=== PATIENT | male | born 1965 | race Caucasian/White ===

== ENCOUNTER 2019-03-05 19:47 | Emergency (ER) | payer SELFPAY ==
[2019-03-05] MEDS ORDERED: Ondansetron 4 MG/2 ML SDV IVPUSH ONE (19:58)
[2019-03-05] MEDS ORDERED: Ketorolac 30 MG/ML SDV IVPUSH ONE (19:58)
[2019-03-05] MEDS ORDERED: Sodium Chloride 0.9% 1,000 ML IV ONE (19:58)
--- NOTE | 2019-03-05 20:01 | EDM.PDOC ---
ED HPI GENERAL MEDICAL PROBLEM - General Chief Complaint: Abdominal Pain Stated Complaint: ADB PAIN Time Seen by Provider: 03/05/19 19:58 Source of Information: Reports: Patient History Limitations: Reports: No Limitations - History of Present Illness INITIAL COMMENTS - FREE TEXT/NARRATIVE: HISTORY AND PHYSICAL: History of present illness: Patient is a 53-year-old male who presents to the emergency room with complaints of low abdominal pain, nausea and vomiting times one hour. Patient reports that he just got into town from [place]. Upon arrival he has had sudden severe low abdominal pain. He describes the pain as sharp and stabbing. He called the ambulance to bring him here to the emergency room. Patient denies any injury or trauma. Denies fever, chills, headache, change in vision, syncope or near syncope. Denies any chest pain, back pain, shortness of breath or cough. Denies any diarrhea, constipation or dysuria. Has not noted any blood in urine or stool. Patient has been eating and drinking appropriately. Review of systems: As per history of present illness and below otherwise all systems reviewed and negative. Past medical history: As per history of present illness and as reviewed below otherwise noncontributory. Surgical history: As per history of present illness and as reviewed below otherwise noncontributory. Social history: See social history for further information Family history: As per history of present illness and as reviewed below otherwise noncontributory. Physical exam: General: Well developed and well nourished 53-year-old male. Alert and oriented. He is yelling out and pacing in his room. HEENT: Atraumatic, normocephalic, pupils equal and reactive bilaterally, negative for conjunctival pallor or scleral icterus, mucous membranes moist, trachea midline. No drooling or trismus noted. No meningeal signs. No hot potato voice noted. Lungs: Clear to auscultation, breath sounds equal bilaterally, chest nontender. Heart: S1S2, regular rate and rhythm without overt murmur Abdomen: Soft, nondistended, nontender. Negative for masses or hepatosplenomegaly. Negative for costovertebral tenderness. Pelvis: Stable nontender. : This was done with consent and a global marketing intern at the bedside. There is no testicular erythema, swelling or pain Skin: Intact, warm, dry. No lesions or rashes noted. Extremities: Atraumatic, moves all extremities per self without difficulty or deficits, negative for cords or calf pain. Neurovascular unremarkable. Neuro: Awake, alert, oriented. Cranial nerves II through XII unremarkable. Cerebellum unremarkable. Motor and sensory unremarkable throughout. Exam nonfocal. Notes: Lab work is unremarkable. CT shows a mild left obstructive uropathy due to a 3 mm distal left ureteral calculus. Small nonobstructive bilateral kidney stones. Mild hepatic steatosis. A prominent prostate. A 5 mm pulmonary nodule. Patient is hesitant to give a urine; education was done. Additional IV fluids given. Pain is a 2/10 at this time. The need for appropriate follow up care with urology was reviewed. Supportive care measures were reviewed and discussed. Voices understanding and is agreeable to plan of care. Denies any further questions or concerns at this time. Diagnostics: CBC, CMP, UA, CT abd/pelvis Therapeutics: IV fluids, Zofran, Toradol Prescription: Flomax Cipro [place] Impression: Renal calculus Plan: Definitive disposition and diagnosis as appropriate pending reevaluation and review of above. lower abdomen Pain Score (Numeric/FACES): 10 - Related Data Allergies Allergy/AdvReac Type Severity Reaction Status Date / Time No Known Allergies Allergy Verified 03/05/19 20:00 Home Meds: Home Meds Tamsulosin [Tamsulosin 24 Hr] 0.4 mg PO DAILY #10 cap.er 03/05/19 [Rx] ED ROS GENERAL - Review of Systems Review Of Systems: Comprehensive ROS is negative, except as noted in HPI. ED EXAM, RENAL/ - Physical Exam Exam: See Below (See dictation) Course - Vital Signs Last Recorded V/S: Last Vital Signs Temp 96.1 F 03/05/19 19:47 Pulse 80 03/05/19 20:36 Resp 20 03/05/19 20:36 BP 181/81 H 03/05/19 20:36 Pulse Ox 94 L 03/05/19 20:36 - Orders/Labs/Meds Orders: Active Orders 24 hr Category Date Time Status UA RFX ZELALEM AND CULT IF INDIC [URIN] Stat Lab 03/05/19 19:58 Ordered Sodium Chloride 0.9% [Normal Saline] 1,000 ml Med 03/05/19 21:45 Active IV ASDIRECTED Medication Orders Sodium Chloride (Normal Saline) 1,000 mls @ 999 mls/hr IV ASDIRECTED CHEYANNE Last Admin: 03/05/19 21:40 Dose: 999 mls/hr Labs: Laboratory Tests 03/05/19 03/05/19 Range/Units 19:45 19:45 WBC 8.15 (4.0-11.0) K/uL RBC 5.05 (4.50-5.90) M/uL Hgb 15.2 (13.0-17.0) g/dL Hct 42.5 (38.0-50.0) % MCV 84.2 (80.0-98.0) fL MCH 30.1 (27.0-32.0) pg MCHC 35.8 (31.0-37.0) g/dL RDW Std Deviation 39.4 (28.0-62.0) fl RDW Coeff of Surjit 13 (11.0-15.0) % Plt Count 205 (150-400) K/uL MPV 10.20 (7.40-12.00) fL Neut % (Auto) 66.1 (48.0-80.0) % Lymph % (Auto) 25.3 (16.0-40.0) % [place] % (Auto) 7.2 (0.0-15.0) % Eos % (Auto) 1.2 (0.0-7.0) % Baso % (Auto) 0.2 (0.0-1.5) % Neut # (Auto) 5.4 (1.4-5.7) K/uL Lymph # (Auto) 2.1 (0.6-2.4) K/uL [place] # (Auto) 0.6 (0.0-0.8) K/uL Eos # (Auto) 0.1 (0.0-0.7) K/uL Baso # (Auto) 0.0 (0.0-0.1) K/uL Nucleated RBC % 0.0 /100WBC Nucleated RBCs # 0 K/uL Sodium 140 (136-148) mmol/L Potassium 4.2 (3.5-5.1) mmol/L Chloride 107 (98-107) mmol/L Carbon Dioxide 22.9 (21.0-32.0) mmol/L BUN 16 (7.0-18.0) mg/dL Creatinine 1.4 H (0.8-1.3) mg/dL Est Cr Clr Drug Dosing TNP Estimated GFR (MDRD) 53.2 ml/min Glucose 170 H (74-106) mg/dL Calcium 9.2 (8.5-10.1) mg/dL Total Bilirubin 0.4 (0.2-1.0) mg/dL AST 21 (15-37) IU/L ALT 35 (14-63) IU/L Alkaline Phosphatase 100 (46-116) U/L Total Protein 7.7 (6.4-8.2) g/dL Albumin 3.9 (3.4-5.0) g/dL Globulin 3.8 (2.6-4.0) g/dL Albumin/Globulin Ratio 1.0 (0.9-1.6) Meds: Medications Generic Name Dose Route Start Last Admin Trade Name Freq PRN Reason Stop Dose Admin Sodium Chloride 1,000 mls @ 999 mls/hr 03/05/19 21:45 03/05/19 21:40 Normal Saline IV 999 mls/hr ASDIRECTED CHEYANNE Administration Discontinued Medications Generic Name Dose Route Start Last Admin Trade Name Freq PRN Reason Stop Dose Admin Sodium Chloride 1,000 mls @ 999 mls/hr 03/05/19 19:58 03/05/19 20:03 Normal Saline IV 03/05/19 20:58 999 mls/hr STAT ONE Administration Ketorolac Tromethamine 30 mg 03/05/19 19:58 03/05/19 20:06 Toradol IVPUSH 03/05/19 19:59 30 mg ONETIME ONE Administration Ondansetron HCl 4 mg 03/05/19 19:58 03/05/19 20:04 Zofran IVPUSH 03/05/19 19:59 4 mg ONETIME ONE Administration Tamsulosin HCl 0.4 mg 03/05/19 20:42 03/05/19 20:59 Flomax PO 03/05/19 20:43 0.4 mg ONETIME ONE Administration Departure - Departure Time of Disposition: 21:48 Disposition: Home, Self-Care 01 Clinical Impression: Renal calculus - Discharge Information Prescriptions: Tamsulosin [Tamsulosin 24 Hr] 0.4 mg PO DAILY #10 cap.er Instructions: Kidney Stones, [id number] Forms: ED Department Discharge Additional Instructions: The following information is given to patients seen in the emergency department who are being discharged to home. This information is to outline your options for follow-up care. We provide all patients seen in our emergency department with a follow-up referral. The need for follow-up, as well as the timing and circumstances, are variable depending upon the specifics of your emergency department visit. If you don't have a primary care physician on staff, we will provide you with a referral. We always advise you to contact your personal physician following an emergency department visit to inform them of the circumstance of the visit and for follow-up with them and/or the need for any referrals to a consulting specialist. The emergency department will also refer you to a specialist when appropriate. This referral assures that you have the opportunity for follow-up care with a specialist. All of these measure are taken in an effort to provide you with optimal care, which includes your follow-up. Under all circumstances we always encourage you to contact your private physician who remains a resource for coordinating your care. When calling for follow-up care, please make the office aware that this follow-up is from your recent emergency room visit. If for any reason you are refused follow-up, please contact the [facility] Emergency Department at and asked to speak to the emergency department charge nurse. [facility] [address] [place], [place] [id number] [place] [address] [facility] Specialty [facility] - Urology [address] [place] [id number] 1. Increase your oral fluids. 2. Take the medication as directed. 3. Follow up with urology as we discussed. Return to the ED as needed as discussed. - My Orders Last 24 Hours: My Active Orders 03/05/19 19:58 UA RFX ZELALEM AND CULT IF INDIC [URIN] Stat 03/05/19 21:45 Sodium Chloride 0.9% [Normal Saline] 1,000 ml IV ASDIRECTED - Assessment/Plan Last 24 Hours: My Active Orders 03/05/19 19:58 UA RFX ZELALEM AND CULT IF INDIC [URIN] Stat 03/05/19 21:45 Sodium Chloride 0.9% [Normal Saline] 1,000 ml IV ASDIRECTED
[2019-03-05 20:27] LABS: BLOOD UREA NITROGEN,BUN 16 mg/dL (7.0-18.0); CARBON DIOXIDE,CO2 22.9 mmol/L (21.0-32.0); CHLORIDE,CL 107 mmol/L (98-107); GLUCOSE RANDOM 170 mg/dL (74-106); POTASSIUM,K 4.2 mmol/L (3.5-5.1); SODIUM,NA 140 mmol/L (136-148)
--- NOTE | 2019-03-05 20:37 | CT ---
INDICATION: Abdominal pain TECHNIQUE: CT abdomen and pelvis without contrast. COMPARISON: None available FINDINGS: Lower chest: Minor compressive changes. A 5 mm left lower lobe nodular opacity on image 2. Liver: Mild hepatic steatosis. Spleen: Unremarkable. Pancreas: Unremarkable. Gallbladder and bile ducts: Unremarkable. Adrenal glands: Unremarkable. Kidneys: Mild left hydronephrosis with a 3 mm calculus in the distal left ureter proximal to the UVJ. A punctate nonobstructive left renal calcification and a 3 mm nonobstructive right renal calcification. A small low-attenuation focus in the medial aspect of the right kidney on image 66 which could represent a small cyst, however not well evaluated. GI tract: Unremarkable. Appendix is normal. Vascular structures: Unremarkable. Lymph nodes: Unremarkable. Miscellaneous: No free fluid or free air. Small fat containing inguinal hernias. Pelvic Organs: A prominent prostate. No bladder calcifications. Bones: Degenerative changes in the lower lumbar spine. IMPRESSION: Mild left obstructive uropathy due to a 3 mm distal left ureteral calculus. Small nonobstructive bilateral renal calcifications. Mild hepatic steatosis. A prominent prostate. A 5 mm pulmonary nodule. If there are risk factors, follow-up can be considered. Dictated by Carlos Alberto Perez MD @ 03/05/2019 8:36:22 PM Please note that all CT scans at this facility use dose modulation, iterative reconstruction, and/or weight-based dosing when appropriate to reduce radiation dose to as low as reasonably achievable. Dictated by: Carlos Alberto Perez MD @ 03/05/2019 20:36:29 (Electronically Signed)
[2019-03-05] MEDS ORDERED: Tamsulosin 0.4 MG Cap.ER PO ONE (20:42)
[2019-03-05] MEDS ORDERED: Sodium Chloride 0.9% 1,000 ML IV SCH (21:45)
== END 2019-03-05 22:10 | disposition home or self-care (01) ==
LOC: MW.ED 19:47
DX: N13.2 Hydronephrosis with renal and ureteral calculous obstruction (principal)
CPT/HCPCS: 74176; 80053; 81001; 85025; 96361; 96374; 96375; 99284; A9270; J1885; J2405; J7040; J7030